=== PATIENT | male | born 1985 | race Caucasian/White ===

== ENCOUNTER 2019-12-09 21:39 | Emergency (ER) | payer SELFPAY ==
[~2019-12-09] VITALS: Ht 190.5 cm; Wt 97.7 kg
[2019-12-09 21:42] VITALS: BP 156/85
[2019-12-09] MEDS ORDERED: morphine 4 MG/ML inj SYRINge IM ONE (22:10)
[2019-12-09] MEDS ORDERED: ketorolac tromethamine 15mg/ml inj. IM ONE (22:10)
[2019-12-09] MEDS ORDERED: LORazepam 1 MG tablet PO ONE (22:10)
[2019-12-09] MEDS ORDERED: LIDOcaine 1% 30ml preserv. free vial SQ STA (22:11)
[2019-12-09] MEDS ORDERED: BUPIVAcaine/PF 2.5 mg/ml (0.25%) 30ml vial IJ ONE (22:25)
[2019-12-09] MEDS ORDERED: BUPIVAcaine/PF 2.5mg/ml (0.25%) 10ml vial IJ ONE (22:30)
== END 2019-12-09 23:02 | disposition home or self-care (01) ==
LOC: ER 21:40
DX: G89.18 Other acute postprocedural pain (principal); M79.645 Pain in left finger(s)
CPT/HCPCS: 64450; 96372; 99284; J1885; J2001; J2270; J3490

== ENCOUNTER 2020-07-24 18:38 | Emergency (ER) | payer OTHER ==
[~2020-07-24] VITALS: Ht 190.5 cm; Wt 102.0 kg
[2020-07-24] MEDS ORDERED: proparacaine 0.5% ophthalmic drops 15ml EACHEYE ONE (21:10)
[2020-07-24 21:39] VITALS: BP 132/76
[2020-07-25] MEDS ORDERED: ciprofloxacin 0.3% 2.5ml ophthalmic solution RIGHTEYE SCH
== END 2020-07-24 21:44 | disposition home or self-care (01) ==
LOC: ER 18:38
DX: S05.01XA Injury of conjunctiva and corneal abrasion without foreign body, right eye, initial encounter (principal); Z98.890 Other specified postprocedural states; Z79.899 Other long term (current) drug therapy; X58.XXXA Exposure to other specified factors, initial encounter; Y93.89 Activity, other specified; Y92.89 Other specified places as the place of occurrence of the external cause; Y99.8 Other external cause status
CPT/HCPCS: 99283

== ENCOUNTER 2020-07-26 01:45 | Emergency (ER) | payer OTHER ==
[~2020-07-26] VITALS: Ht 190.5 cm; Wt 93.0 kg
[2020-07-26] MEDS ORDERED: normal saline 1000ML IV soln IVB ONE ×2 (01:55)
[2020-07-26] MEDS ORDERED: metoclopramide 5 mg/ml inj IV ONE (01:55)
[2020-07-26] MEDS ORDERED: diphenhydrAMINE 50 mg/ml inj IV ONE (01:55)
[2020-07-26] MEDS ORDERED: ketorolac trometh. 30mg/ml inj. IV ONE (02:00)
--- NOTE | 2020-07-26 02:13 | NUR ---
relieving RN for break, pt is resting quietly on gurney, receiving 1st liter NS, pt does have ride home with friend
[2020-07-26 02:19] LABS: BASOPHILS # (AUTO) 0.1 X10'3 (0-0.2); BASOPHILS % (AUTO) 0.7 % (0-1); EOSINOPHILS # (AUTO) 0.2 X10'3 (0-0.9); EOSINOPHILS % (AUTO) 2.8 % (0-6); HEMATOCRIT 45.1 % (42.0-52.0); HEMOGLOBIN 14.8 g/dl (14.0-17.9); LYMPHOCYTES # (AUTO) 1.9 X10'3 (1.1-4.8); LYMPHOCYTES % (AUTO) 25.7 % (21-51); MEAN CORPUSCULAR HEMOGLOBIN 28.2 PG (27.0-31.0); MEAN CORPUSCULAR HGB CONC 32.9 g/dL (33.0-36.5); MEAN CORPUSCULAR VOLUME 85.8 FL (78-98); MEAN PLATELET VOLUME 7.8 FL (7.4-10.4); MONOCYTES # (AUTO) 0.7 X10'3 (0-0.9); NEUTROPHILS # (AUTO) 4.6 X10'3 (1.8-7.7); NEUTROPHILS % (AUTO) 61.8 % (42-75); PLATELET COUNT 212 X10'3 (140-440); RED BLOOD COUNT 5.25 X10'6 (4.70-6.10); RED CELL DISTRIBUTION WIDTH 13.5 % (11.5-14.5); WHITE BLOOD COUNT 7.4 X10'3 (4.5-11.0)
[2020-07-26 02:37] LABS: ALANINE AMINOTRANSFERASE 99 U/L (12-78); ALBUMIN 3.6 G/DL (3.4-5.0); ALKALINE PHOSPHATASE 91 IU/L (46-116); ANION GAP 7 (8-16); ASPARTATE AMINO TRANSFERASE 44 U/L (10-37); BILIRUBIN,TOTAL 0.3 MG/DL (0.1-1.0); BLOOD UREA NITROGEN 17 MG/DL (7-18); BUN/CREATININE RATIO 15.2 (5.4-32.0); CALCIUM 8.9 MG/DL (8.5-10.1); CHLORIDE 106 MMOL/L (99-107); CREATININE 1.12 MG/DL (0.60-1.10); GLUCOSE 106 MG/DL (70-104); LIPASE 116 U/L (73-393); POTASSIUM 3.9 MMOL/L (3.5-5.1); SODIUM 141 MMOL/L (135-145); TOTAL CARBON DIOXIDE 28.4 MMOL/L (24-32); TOTAL PROTEIN 7.1 G/DL (6.4-8.2); eGFR 76 ML/MIN
[2020-07-26 03:00] VITALS: BP 134/82
[2020-07-26] MEDS ORDERED: iohexol 300mg/ml 100ml inj. ONE (03:06)
[2020-07-26] MEDS ORDERED: glycopyrrolate 0.2mg/ml inj IV ONE (03:55)
[2020-07-26] MEDS ORDERED: ONDA4TAB12 PO (03:56)
[2020-07-26] MEDS ORDERED: DICY10CA88 PO (03:56)
== END 2020-07-26 04:30 | disposition home or self-care (01) ==
LOC: ER 01:46
DX: R10.11 Right upper quadrant pain (principal); R11.0 Nausea; Z98.890 Other specified postprocedural states; Z79.899 Other long term (current) drug therapy
CPT/HCPCS: 74177; 80053; 83690; 85025; 96361; 96374; 96375; 99285; J1200; J1885; J2765; J7030; Q9967; J3490